=== PATIENT | male | born 1975 | race American Indian/Alaskan Native ===

== ENCOUNTER 2019-03-26 08:37 | Emergency (ER) | payer SELFPAY ==
[2019-03-26 08:42] VITALS: BP 123/77
--- NOTE | 2019-03-26 09:42 | XRay Report ---
RIGHT FOOT 3 VIEWS INDICATION / CLINICAL INFORMATION: Twisted rt foot pain. COMPARISON: None available. FINDINGS: There is nondisplaced avulsion fracture involving the base of the fifth metatarsal. No additional fra ctures are identified. IMPRESSION: Small nondisplaced avulsion fracture from the base of the fifth metatarsal. Signer Name: Kaela Espinosa MD Signed: 03/26/2019 9:38 AM Workstation Name: [id number]
--- NOTE | 2019-03-26 09:54 | Emergency Department Report ---
ED Lower Extremity HPI - General Chief Complaint: Extremity Injury, Lower Stated Complaint: RT FOOT PAIN Time Seen by Provider: 03/26/19 09:08 Source: patient Mode of arrival: Ambulatory Limitations: No Limitations - History of Present Illness Initial Comments: Patient is a 43-year-old male presents emergency room with complaints of right foot pain that began 3 days ago. He has associated swelling to the right foot. He states that he was walking to the bus stop and he tripped over something and states that he twisted his foot. He denies any prior injury of his foot. He states he has been ambulatory with some discomfort. He denies any numbness or weakness. He denies any past medical history or allergies medications. - Related Data Previous Rx's Medication Instructions Recorded Last Taken Type Ibuprofen [Motrin 600 MG tab] 600 mg PO Q8H PRN #20 tablet 03/26/19 Unknown Rx traMADoL [Ultram 50 MG tab] 50 mg PO Q6HR PRN #12 tablet 03/26/19 Unknown Rx Allergies Allergy/AdvReac Type Severity Reaction Status Date / Time No Known Allergies Allergy Unverified 03/26/19 08:42 ED Review of Systems ROS: Stated complaint: RT FOOT PAIN Other details as noted in HPI Comment: All other systems reviewed and negative ED Past Medical Hx - Surgical History Additional Surgical History: appendectomy - Social History Smoking Status: Never Smoker - Medications Home Medications: Home Medications Medication Instructions Recorded Confirmed Last Taken Type Ibuprofen [Motrin 600 MG tab] 600 mg PO Q8H PRN #20 tablet 03/26/19 Unknown Rx traMADoL [Ultram 50 MG tab] 50 mg PO Q6HR PRN #12 tablet 03/26/19 Unknown Rx ED Physical Exam - General Limitations: No Limitations General appearance: alert, in no apparent distress - Head Head exam: Present: atraumatic, normocephalic - Eye Eye exam: Present: normal appearance - ENT ENT exam: Present: mucous membranes moist - Extremities Exam Extremities exam: Present: other (TTP over the right lateral foot, edema present to the right lateral foot, FROM of the right ankle, right foot, and right toes, no obvious visualized deformity, neurovascularly intact) - Neurological Exam Neurological exam: Present: alert, oriented X3 - Psychiatric Psychiatric exam: Present: normal affect, normal mood - Skin Skin exam: Present: warm, dry, intact ED Course Vital Signs 03/26/19 08:38 Temperature 98.8 F Pulse Rate 58 L Respiratory 18 Rate Blood Pressure 123/77 O2 Sat by Pulse 98 Oximetry ED Lower Extremity MDM - Radiology Data Radiology results: report reviewed RIGHT FOOT 3 VIEWS INDICATION / CLINICAL INFORMATION: Twisted rt foot pain. COMPARISON: None available. FINDINGS: There is nondisplaced avulsion fracture involving the base of the fifth metatarsal. No additional fractures are identified. IMPRESSION: Small nondisplaced avulsion fracture from the base of the fifth metatarsal. Signer Name: Kaela Espinosa MD Signed: 03/26/2019 9:38 AM Workstation Name: [id number] Transcribed By: Dictated By: Kaela Espinosa MD Electronically Authenticated By: Kaela Espinosa MD Signed Date/Time: 03/26/19 0938 - Medical Decision Making Patient is a 43-year-old male presents emergency room with complaints of right foot pain that began 3 days ago. He has associated swelling to the right foot. He states that he was walking to the bus stop and he tripped over something and states that he twisted his foot. He denies any prior injury of his foot. He states he has been ambulatory with some discomfort. He denies any numbness or weakness. He denies any past medical history or allergies medications. VSS. on exam: TTP over the right lateral foot, edema present to the right lateral foot, FROM of the right ankle, right foot, and right toes, no obvious visualized deformity, neurovascularly intact. XR right foot: Small nondisplaced avulsion fracture from the base of the fifth metatarsal. Discussed radiology findings with patient. Patient placed in a postop ortho shoe and given crutches. Advised patient not to bear weight until he has been cleared by an orthopedic doctor. pt given prescription for tramadol and ibuprofen. advised pt to please take medication as prescribed as needed. Do not drive or operate heavy machinery while taking pain medication. May use ice for 15 minutes at a time, elevation of the leg, rest. Do not bear weight on the foot until you have been cleared by an orthopedic doctor. Follow-up with orthopedic doctor in the next 2-3 days. Return to the emergency room for any new or worsening symptoms. - Differential Diagnosis strain, sprain, fx, dislocation Critical care attestation.: If time is entered above; I have spent that time in minutes in the direct care of this critically ill patient, excluding procedure time. ED Disposition Clinical Impression: Fracture of 5th metatarsal Qualifiers: Encounter type: initial encounter Fracture type: closed Fracture alignment: nondisplaced Laterality: right Qualified Code(s): S92.354A - Nondisplaced fracture of fifth metatarsal bone, right foot, initial encounter for closed fracture Disposition: - TO HOME OR SELFCARE Is pt being admited?: No Does the pt Need Aspirin: No Condition: Stable Instructions: Foot Fracture in Adults (ED) Additional Instructions: please take medication as prescribed as needed. Do not drive or operate heavy machinery while taking pain medication. May use ice for 15 minutes at a time, elevation of the leg, rest. Do not bear weight on the foot until you have been cleared by an orthopedic doctor. Follow-up with orthopedic doctor in the next 2-3 days. Return to the emergency room for any new or worsening symptoms. Prescriptions: Ibuprofen [Motrin 600 MG tab] 600 mg PO Q8H PRN #20 tablet PRN Reason: Pain, Moderate (4-6) traMADoL [Ultram 50 MG tab] 50 mg PO Q6HR PRN #12 tablet PRN Reason: Pain , Severe (7-10) Referrals: ROGE GREGORIO MD [Staff Physician] - 2-[address] [facility] [Provider Group] - 2-3 Days Forms: Work/School Release Form(ED) Time of Disposition: 09:52 Print Language: BRAZILIAN
== END 2019-03-26 10:33 | disposition home or self-care (01) ==
LOC: ED 08:37
DX: S92.351A Displaced fracture of fifth metatarsal bone, right foot, initial encounter for closed fracture (principal); Z90.89 Acquired absence of other organs; X50.1XXA Overexertion from prolonged static or awkward postures, initial encounter; Y93.89 Activity, other specified; Y92.89 Other specified places as the place of occurrence of the external cause; Y99.8 Other external cause status

== ENCOUNTER 2019-09-19 09:45 | Emergency (ER) | payer SELFPAY ==
--- NOTE | 2019-09-19 10:48 | Emergency Department Report ---
- General Chief Complaint: Upper Respiratory Infection Stated Complaint: COUGH X 3 WKS Time Seen by Provider: 09/19/19 10:06 Source: patient Mode of arrival: Ambulatory Limitations: No Limitations - History of Present Illness Initial Comments: Patient is a 44-year-old male who presents emergency room with complaints of a productive cough for 3 weeks. He states that he has associated thick mucus production. He states that occasionally he has left ear discomfort. He denies any fever, nausea, vomiting, diarrhea, shortness of breath, chest pain, leg swelling, pleuritic chest pain, sore throat. He states that he did go to [place] 2 weeks ago. He denies any known sick contacts or contacts with COVID positive patient. He states he just quit smoking 3 weeks ago. He denies any past medical history or allergies to medications. - Related Data Previous Rx's Medication Instructions Recorded Last Taken Type Ibuprofen [Motrin 600 MG tab] 600 mg PO Q8H PRN #20 tablet 03/26/19 Unknown Rx traMADoL [Ultram 50 MG tab] 50 mg PO Q6HR PRN #12 tablet 03/26/19 Unknown Rx Azithromycin [Zithromax TAB] 250 mg PO QDAY 5 Days #6 tablet 09/19/19 Unknown Rx Prednisone [predniSONE 10 mg 10 mg PO .TAPER #1 tab.ds.pk 09/19/19 Unknown Rx (6-Day Pack, 21 Tabs)] guaiFENesin ER [Mucinex ER] 600 mg PO BID #14 tablet.er 09/19/19 Unknown Rx Allergies Allergy/AdvReac Type Severity Reaction Status Date / Time No Known Allergies Allergy Unverified 03/26/19 08:42 ED Review of Systems ROS: Stated complaint: COUGH X 3 WKS Other details as noted in HPI Comment: All other systems reviewed and negative ED Past Medical Hx - Past Medical History Previous Medical History?: No - Surgical History Past Surgical History?: Yes Hx Appendectomy: Yes Additional Surgical History: appendectomy - Social History Smoking Status: Never Smoker Substance Use Type: None - Medications Home Medications: Home Medications Medication Instructions Recorded Confirmed Last Taken Type Ibuprofen [Motrin 600 MG tab] 600 mg PO Q8H PRN #20 tablet 03/26/19 Unknown Rx traMADoL [Ultram 50 MG tab] 50 mg PO Q6HR PRN #12 tablet 03/26/19 Unknown Rx Azithromycin [Zithromax TAB] 250 mg PO QDAY 5 Days #6 tablet 09/19/19 Unknown Rx Prednisone [predniSONE 10 mg 10 mg PO .TAPER #1 tab.ds.pk 09/19/19 Unknown Rx (6-Day Pack, 21 Tabs)] guaiFENesin ER [Mucinex ER] 600 mg PO BID #14 tablet.er 09/19/19 Unknown Rx ED Physical Exam - General Limitations: No Limitations General appearance: alert, in no apparent distress - Head Head exam: Present: atraumatic, normocephalic - Eye Eye exam: Present: normal appearance - ENT ENT exam: Present: normal orophraynx, mucous membranes moist, TM's normal bilaterally, normal external ear exam - Respiratory Respiratory exam: Present: normal lung sounds bilaterally. Absent: respiratory distress, wheezes, rales, rhonchi, stridor, chest wall tenderness, accessory muscle use, decreased breath sounds, prolonged expiratory - Cardiovascular Cardiovascular Exam: Present: normal rhythm, tachycardia, normal heart sounds. Absent: systolic murmur, diastolic murmur, rubs, gallop - Neurological Exam Neurological exam: Present: alert, oriented X3 - Psychiatric Psychiatric exam: Present: normal affect, normal mood - Skin Skin exam: Present: warm, dry, intact ED Course Vital Signs 09/19/19 09/19/19 09:58 10:48 Temperature 98.8 F 98.6 F Pulse Rate 107 H 103 H Respiratory 20 18 Rate Blood Pressure 131/86 130/91 O2 Sat by Pulse 95 95 Oximetry ED Medical Decision Making - Radiology Data Radiology results: report reviewed CHEST 2 VIEWS INDICATION: productive cough x3 weeks. COMPARISON: None FINDINGS: Support devices: None. Heart: Within normal limits. Lungs/pleura: No acute air space or interstitial disease. No pneumothorax. Additional findings: None. IMPRESSION: No acute findings. Signer Name: Michael Brizuela Jr, MD Signed: 09/19/2019 10:20 AM Workstation Name: [id number] Transcribed By: TTR Dictated By: MICHAEL BRIZUELA JR, MD Electronically Authenticated By: MICHAEL BRIZUELA JR, MD Signed Date/Time: 09/19/19 1020 DD/ 1019 TD/TT: - Medical Decision Making Patient is a 44-year-old male who presents emergency room with complaints of a productive cough for 3 weeks. He states that he has associated thick mucus production. He states that occasionally he has left ear discomfort. He denies any fever, nausea, vomiting, diarrhea, shortness of breath, chest pain, leg swelling, pleuritic chest pain, sore throat. He states that he did go to [place] 2 weeks ago. He denies any known sick contacts or contacts with COVID positive patient. He states he just quit smoking 3 weeks ago. He denies any past medical history or allergies to medications. Vitals with mild tachycardia, otherwise normal. Breath sounds are clear bilaterally, no wheezing, no rales, no rhonchi. CXR: No acute findings. Wells score is 1.5, very low risk for PE. Patient will be treated for acute bronchitis. Patient could also be having the cough due to recently stopping smoking 3 weeks ago and the body rebuilding the mucociliary escalator usually causes cough. Patient given prescription for azithromycin, prednisone, Mucinex. Advised patient increase your fluid intake. Please take medication as prescribed. Follow-up with a primary care doctor. Please avoid smoking. Return to the emergency room for any new or worsening symptoms. Discussed in detail with the patient the importance of follow-up and strict return precautions. - Differential Diagnosis URI, bronchitis, PNA, viral syndrome, PE, tobacco use Critical care attestation.: If time is entered above; I have spent that time in minutes in the direct care of this critically ill patient, excluding procedure time. ED Disposition Clinical Impression: Acute bronchitis Qualifiers: Bronchitis organism: unspecified organism Qualified Code(s): J20.9 - Acute bronchitis, unspecified Disposition: DC-01 TO HOME OR SELFCARE Is pt being admited?: No Does the pt Need Aspirin: No Condition: Stable Instructions: Acute Bronchitis (ED) Additional Instructions: increase your fluid intake. Please take medication as prescribed. Follow-up with a primary care doctor. Please avoid smoking. Return to the emergency room for any new or worsening symptoms. Prescriptions: guaiFENesin ER [Mucinex ER] 600 mg PO BID #14 tablet.er Prednisone [predniSONE 10 mg (6-Day Pack, 21 Tabs)] 10 mg PO .TAPER #1 tab.ds.pk Azithromycin [Zithromax TAB] 250 mg PO QDAY 5 Days #6 tablet Referrals: RUTHANN LOPEZ MD [Staff Physician] - 3-5 Days [facility] [Outside] - 3-5 Days [facility] [Outside] - 3-5 Days [facility] [Provider Group] - 3-5 Days Time of Disposition: 10:46 Print Language: [place]
[2019-09-19 10:52] VITALS: BP 130/91
== END 2019-09-19 10:55 | disposition home or self-care (01) ==
LOC: ED 09:45
DX: J20.9 Acute bronchitis, unspecified (principal); Z90.49 Acquired absence of other specified parts of digestive tract
CPT/HCPCS: 71046